=== PATIENT | male | born 1950 | race Caucasian/White ===

== ENCOUNTER 2016-05-31 18:11 | Inpatient (IN) | payer MEDICARE, MEDICAID ==
[~2016-05-31] VITALS: Ht 172.7 cm; Wt 125.7 kg
[~2016-05-31 18:11] MED LIST: AMBIEN DPS5 MG PO; ASCORBIC ACID500 MG PO; ASPIRIN EC81 MG PO; CALCIUM 600 +1 EAC3 PO; CARVEDILOL25 MG PO; COLACE-DPS100 MG PO; COUMADIN DPS2 MG PO; DEMADEX DPS100 MG PO; FEOSOL-DPS325 MG PO; HUMALOG 50100 UNITS/ SQ; LANTUS100 UNITS/ SQ; LEXAPRO DPS10 MG PO; MAALOX DPS30 ML PO; MYCOSTATIN PWD15 GM TP; MYLICON DPS80 MG PO; NITROSTAT0.4 MG SL; OMEGA-3 DPS1000 MG PO; OMNICEF DPS300 MG PO; POTASSIUM CHLO10 MEQ PO; PRAVACHOL20 MG PO; PROTONIX40 MG PO; ROCALTROL DPS0.5 MCG PO; SURFAK DPS240 MG PO; TYLENOL DPS325 MG PO
--- NOTE | 2016-06-01 06:57 | ER ---
ADMIT: 05/31/2016 RM/LOC: 309 MR#: [id number] 2620 [facility] [address] [place], [place] [address] MIRELLA JASSO [address] [address] Emergency Room Report SEX: M AGE: 66 : 1950 DATE: 05/31/2016 CHIEF COMPLAINT: Weakness. 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 Readily admits to frequent falls. Denies any head injury or loss of consciousness. ALLERGIES: NONE. MEDICATIONS: Please see nurse's MAR. PAST MEDICAL HISTORY: Illnesses: Chronic atrial fib, anticoagulated, CHF, coronary artery disease, type 2 diabetes, hypertension, stage 4 kidney disease, venous stasis disease with chronic edema, obstructive sleep apnea, noncompliant with CPAP. Operations: PCI stent, cholecystectomy, gastric bypass, ventral hernia repair, ERCP with bile duct repair, right wrist fracture with ORIF, dual chamber pacemaker with ICD. SOCIAL HISTORY: Nonsmoker, nondrinker. No illicit drugs. FAMILY HISTORY: Adopted. REVIEW OF SYSTEMS: A 12-point review of systems is negative for all other systems, illnesses, or operations except as outlined above. PHYSICAL EXAMINATION: VITAL SIGNS: Temp 96.1, pulse 75, respirations 21, BP 146/68, SaO2 of 100%. GENERAL: Nontoxic, non-diaphoretic without jaundice or icterus. Pale, cool, non-diaphoretic. Multiple contusions noted. HEENT: Normocephalic. No evidence of epistaxis, rhinorrhea, or otorrhea. NECK: Supple without lymphadenopathy or thyromegaly. CHEST: Clear. Breath sounds equal without rales, rhonchi, or wheeze. HEART: Regular rate and rhythm without murmur or gallop. 2+ pedal ankle edema, stable from baseline according to patient. ABDOMEN: Obese, nontender, nondistended without mass or megaly. Bowel sounds hypoactive. EXTREMITIES: No evidence of Homans sign, synovitis, or dermatitis. Chronic venous stasis disease noted in lower extremities. NEURO: EOMI. PERRLA. No evidence of drift, dysarthria, or ataxia. Gait not established due to weakness. MEDICAL DECISION MAKING: The patient is profoundly weak, two-person assist getting out of wheelchair. CT head shows subtle sliver subdurals, left frontal and parietal, no mass effect. Hemoglobin 9.2, WBC 11.0, CRP 2.3, ADMIT: 05/31/2016 RM/LOC: 309 MR#: [id number] [address] [address] MIRELLA JASSO [address] [place] [address] Emergency Room Report SEX: M AGE: 66 : 1950 potassium 4.2, creatinine 4.1, lactic 1.2, troponin 0.119, BNP 3426, INR 4.66, magnesium 2.6, procalcitonin 0.07. UA negative. Chest x-ray shows no acute findings. EKG shows ventricular pacemaker rhythm, unchanged from baseline. Discussed findings with Dr. Hanks and Dr. Jerad Lam. INR was reversed with vitamin K 2 mg p.o. and 2 units fresh frozen plasma. Orders were given for ICU. Due to patient's presentation, findings, and interventions, 30 minutes of critical care is warranted. DIAGNOSES: 1. Sliver subdural hematomas, left frontal and parietal. 2. Chronically anticoagulated for atrial fibrillation. 3. Exogenous obesity, status post bariatric surgery. 4. Coronary artery disease, status post PCI stent and dual chamber pacemaker with ICD. 5. End-stage renal disease, pending dialysis. RECOMMENDATION: Admit inpatient ICU for Dr. Ureña and Dr. Jerad Lam. ADMISSION/DISCHARGE CONDITION: Stable. CODE STATUS: The patient is a DNR. Rayshawn Villalpando MD/ nolvia JOB #: [id number] CC: Logan Ureña MD, Attending Physician Logan Ureña MD, Family Physician MD Jerad Diaz MD
[2016-06-04] MEDS ORDERED: COUMADIN6 MG PO (11:50)
[2016-06-04] MEDS ORDERED: VENOFER100 MG/5 M IV (11:51)
--- NOTE | 2016-06-05 16:04 | CO ---
ADMIT: 05/31/2016 RM/LOC: 309 [facility] MR#: [id number] 2620 [facility] [address] [place], [place] [address] TRACE JASSO [address] [address] Consultation SEX: M AGE: 66 : 1950 DATE OF CONSULTATION: 06/01/2016 ATTENDING PHYSICIAN: Logan Ureña CONSULTING PHYSICIAN: Jacob Vo MD REASON FOR CONSULTATION: Chronic kidney disease stage 4/5 and volume expansion. HISTORY OF PRESENT ILLNESS: The patient is a 66-year-old gentleman, who has a history of advanced chronic kidney disease. He presented to the hospital because he had been feeling poorly. He reports having a fall on Wednesday. This was a mechanical fall. He denies any loss of consciousness. He just had his legs give out. On evaluation here in the ER, he was noted to have a subdural hematoma, which has resolved as of our CAT scan today. Today, he feels well. He denies any loss of appetite, dysgeusia, or sleep disturbances. He denies any orthopnea or PND. He reports that his lower extremity edema is more or less stable. We had planned to get him down to see a vascular surgeon today for evaluation for evaluation of access placement for hemodialysis; but obviously, he is not going to be able to make that appointment today. He denies any urinary complaints. He notes ongoing lower extremity edema. He denies any abdominal complaints. He feels somewhat stronger but still weak. REVIEW OF SYSTEMS: Complete review of systems is negative in detail except as mentioned in the history of present illness above. PAST MEDICAL HISTORY: 1. Hypertension. 2. Diabetes mellitus. 3. Morbid obesity. 4. CHF. 5. Artery coronary artery disease, status post pacemaker and ICD placement. 6. Dyslipidemia. 7. CKD stage IV. 8. Secondary hyperparathyroidism. SOCIAL HISTORY: He lives independently. Denies any ongoing tobacco, alcohol, or recreational drug use. FAMILY HISTORY: No family history of chronic kidney disease or renal replacement therapy. MEDICATIONS: Reviewed in the chart. ALLERGIES: HE HAS NO KNOWN DRUG ALLERGIES. PHYSICAL EXAMINATION: VITAL SIGNS: Temperature 96.8 Fahrenheit, pulse 75, blood pressure 179/87, saturating 94% on room air. In's and out's over the last 24 hours have been 1.5 L in and 1200 mL out. ADMIT: 05/31/2016 RM/LOC: 309 [facility] MR#: [id number] [address] [id number] [place], [place] [address] TRACE JASSO [address] [place] [address] Consultation SEX: M AGE: 66 : 1950 GENERAL: He is comfortable in the recliner. Head is nontraumatic and normocephalic. Extraocular movements are intact. Pale conjunctivae. Moist mucosa. NECK: Supple without any JVD. CHEST: Clear to auscultation. CVS: Regular rate and rhythm. S1, S2 heard. No rubs, murmurs, or gallops. ABDOMEN: Soft and obese. EXTREMITIES: 1 to 2+ lower extremity edema. He has 1+ upper extremity edema as well. SKIN: Multiple bruises on his forearms. NEUROLOGIC: Alert and oriented x3. He is able to move all his extremities. PSYCHIATRIC: Affect and memory within normal limits. LABORATORY DATA: Reviewed. BMP with sodium of 143, potassium 3.7, CO2 of 27, creatinine 3.8, his hemoglobin was 8.1. ASSESSMENT AND PLAN: 1. Chronic kidney disease stage 4/5-he has no uremic symptoms at this time. There are no emergent indications for renal replacement therapy. As per our plan previously, I will try to get him seen by Vascular Surgery for access placement. I discussed the risks of a central venous catheter, chiefly infection risk and discussed with Trace that we would like to avoid it if he can. Of course, if there is any emergent indications for renal replacement therapy, we will put in a dialysis catheter and start renal replacement therapy. I also discussed uremic symptoms with him and he is aware of those. 2. Hypertension/volume expansion-I will stop his IV fluids. I will increase his torsemide from 60 mg a day to 100 mg a day. Check labs to monitor medication toxicity. 3. Anemia and chronic kidney disease-I will check iron stores and use iron/NANCY therapy as needed. 4. Renal osteodystrophy-he is on calcitriol 0.5 mcg a day. I will check a serum phosphorous level in the a.m. Continue calcitriol for the time being. Thank you for this consultation. Please do not hesitate to contact me with questions. Jacob Vo MD/ nolvia JOB #: [id number] CC: Logan Ureña, Attending Physician Logan Ureña, Family Physician
--- NOTE | 2016-06-08 07:11 | HP ---
ADMIT: 05/31/2016 RM/LOC: 309 [facility] MR#: [id number] [address] [facility] [address] [place], [place] [address] TRACE JASSO [address] [address] History and Physical SEX: M AGE: 66 : 1950 DATE OF SERVICE: HISTORY OF PRESENT ILLNESS: Trace is a 66-year-old, white male, with a history of chronic kidney disease near end stage, type 2 diabetes, venous insufficiency, hypertension, and CHF, who presents to the ER with progressively worsening fluid retention and lower extremity weakness. The patient states that he frequently falls as he is unable to ambulate very far. He says that his legs get weak, and he ends up falling or lowering himself to the ground. The last fall was the night before last. He says that he fell onto his bed and then slid down to the ground. He did not hit his head and denies loss of consciousness. He is on warfarin with a supratherapeutic INR currently and multiple bruises all over his body. He denies any current pain. No headache. No blurry vision. No numbness, tingling, and the only weakness is in his bilateral lower extremities with ambulation. He does get short of breath with ambulation, but is currently not short of breath at rest. EMERGENCY ROOM COURSE: INR was found to be supratherapeutic. Chest x-ray was benign. The CT of the head shows an acute subdural hematoma left frontal parietal region, so Neurosurgery was contacted for this. Vitamin K was given in the ER. The patient will be admitted to the ICU for CKD, fall, subdural hematoma, and supratherapeutic INR. PAST MEDICAL HISTORY: Type 2 diabetes, obesity, end-stage CKD with baseline creatinine of 3.6, hypertension, sleep apnea, venous insufficiency, atrial fibrillation, CHF, and cardiomyopathy. PAST SURGICAL HISTORY: Gastric bypass, pacemaker, cholecystectomy, hernia repair, ORIF, and forearm fracture. SOCIAL HISTORY: Single 66-year-old male, does not smoke or drink, currently disability. FAMILY HISTORY: Unknown as he is adopted. MEDICATIONS: Per the chart. REVIEW OF SYSTEMS: The patient has chronic swelling in feet and ankles though this has been worsening. Recently, he does have some arthritis-type pain in his knees, backs, and hips. He has increasing weakness, fatigue, and exercise tolerance due to his swelling, uses a motorized scooter to get around. He is unable to ambulate even short distances. Remainder of review of systems is negative. PHYSICAL EXAMINATION: VITAL SIGNS: Blood pressure 146/68, heart rate 75, respirations 21, temp 96.0, O2 saturation 100% on room air. GENERAL: Morbidly obese, but no acute distress. He is pleasant and conversational. HEENT: EOMI. Mucous membranes are moist. He does have a subconjunctival hemorrhage on the left orbit. ADMIT: 05/31/2016 RM/LOC: 309 [facility] MR#: [id number] [address] [address] TRACE JASSO [facility] [place] [address] History and Physical SEX: M AGE: 66 : 1950 NECK: Unable to appreciate any JVD. No lymphadenopathy palpated. CARDIOVASCULAR: Regular rhythm and rate. Appears to be a paced rhythm. No murmurs noted. PULMONARY: Clear to auscultation bilaterally. ABDOMEN: Morbidly obese. He does have ascites with a positive fluid wave. Decreased bowel sounds likely due to his extensive edema. EXTREMITIES: 3+ pitting edema bilateral lower extremities up to the abdomen. He does have a fluctuant almost like free fluid under his subcutaneous tissue of the dorsum of his feet. He does have a brawny thickened area on the back of his left calf with some excoriations though no apparent cellulitis or erysipelas at the current time. NEUROLOGIC: Cranial nerves II through XII grossly intact. Sensation is intact to light touch bilateral lower extremities. Decreased strength in his legs. EXTREMITIES: Bilateral arms showed numerous bruises in various stages of healing. LABORATORIES AND IMAGING: INR is 4.66. CMP is pertinent for a BUN of 66, creatinine 4.1, calcium of 7.7, and an albumin of 2.5. GFR is 14. Troponin is mildly elevated at 0.119. BNP is 34,000. CRP is 2.3. White count is 11, hemoglobin 9.2, and platelets are 255. Lactic acid is 1.2. Procalcitonin 0.07. Head CT shows acute subdural hematoma left frontoparietal lesion 2.8 mm maximum width, possible small left frontal hematoma measuring 2.4 mm, chronic small vessel ischemic changes, multiple calcifications. Chest x-ray shows no acute cardiopulmonary process. ASSESSMENT AND PLAN: 1. Subdural hematoma, on anticoagulation. Neurosurgery has been consulted, but the patient is hemostatically and neurologically intact; however, ADMIT: 05/31/2016 RM/LOC: 309 [facility] MR#: [id number] [address] [place] [address] TRACE JASSO [address] [place] [address] History and Physical SEX: M AGE: 66 : 1950 given his status, we will admit him to the ICU with routine vitals and neuro checks per their protocol. 2. Supratherapeutic INR. INR is greater than 4 with a head bleed. We will give vitamin K as well as 2 units of FFP. Appreciate Neurosurgery recommendations. 3. Chronic kidney disease, end stage. The patient currently has an appointment tomorrow to meet with what sounds like a vascular surgeon for dialysis access, but obviously will not be making that appointment, will consult Nephrology, will likely need diuresis versus temporary dialysis while we by time to get him a suitable permanent dialysis access. 4. Type 2 diabetes. Glucose checks q.6 hours. Low-dose Humalog sliding scale. Jarrett Black MD Resident / Loagn Ureña MD / modl JOB #: [id number] CC: Logan Ureña, Attending Physician Logan Ureña, Family Physician
--- NOTE | 2016-06-09 08:45 | CO ---
ADMIT: 05/31/2016 RM/LOC: 309 [facility] MR#: [id number] 2620 [facility] [address] [place], [place] [address] MIRELLA SUAREZ [address] [address] Consultation SEX: M AGE: 66 : 1950 DATE OF CONSULTATION: 05/31/2016 ATTENDING PHYSICIAN: Logan Ureña CONSULTING PHYSICIAN: Jerad Lam MD REASON FOR CONSULT: Intraparenchymal hemorrhage. HISTORY OF PRESENT ILLNESS: Mr. Suarez is a gentleman who has multiple bruises throughout his body. He falls frequently, although he states he has not fallen recently. He is on Coumadin for his heart. He has no complaints today as I am seeing him. PAST MEDICAL HISTORY: Coronary artery disease with stenting, diabetes type 2, ischemic cardiomyopathy, biventricular ICD, atrial fibrillation, chronic kidney disease stage IV, in need of dialysis, chronic edema, hypertension, obstructive sleep apnea, hyperlipidemia, arthritis, anemia, colon polyps, diverticulosis, psoriasis, esophagitis, secondary hyperparathyroidism, systolic heart failure, bariatric surgery with gastric bypass, herniorrhaphy, cholecystectomy, right wrist fracture with surgery. FAMILY HISTORY: Unknown due to adoption. SOCIAL HISTORY: He is retired. He lives at home. He is nonsmoker, nondrinker. ALLERGIES: NONE KNOWN. REVIEW OF SYSTEMS: A complete review of systems was obtained with pertinent positives dictated in the HPI. MEDICATIONS: 1. Escitalopram. 2. Calcium. 3. Calcitriol. 4. Aspirin 81 mg. 5. Ferrous sulfate. 6. Docusate sodium. 7. Zolpidem. 8. Pravastatin. 9. Omeprazole. 10.Carvedilol. 11.Vitamin C. 12.Warfarin. 13.Lovaza. 14.Simethicone. 15.Lantus. 16.Torsemide. 17.Mycostatin. ADMIT: 05/31/2016 RM/LOC: 309 [facility] MR#: [id number] 2620 [facility] [address] [place], [place] [address] MIRELLA SUAREZ [address] [facility] [address] [place] [address] Consultation SEX: M AGE: 66 : 1950 18.Maalox. 19.Surfak. 20.Tylenol. 21.Nitrostat. 22.Humalog. PHYSICAL EXAMINATION: VITAL SIGNS: 96.9 degrees, 75 beats, 23 respirations, 169/94, 94% on room air. A second unit of FFP is being prepared. 1 unit is already in. The acute reversal protocol was started by Dr. Ramirez in the Emergency Department. GENERAL: He is a very unhealthy-appearing 66-year-old gentleman who is morbidly obese. HEENT: Atraumatic head. No scleral icterus. Clear oropharynx. LUNGS: Normal respiratory excursion. ABDOMEN: Obese nontender abdomen. EXTREMITIES: Multiple differently aged bruises on his extremities with 2+ pitting edema and 1+ radial pulses. NEUROLOGICAL EXAMINATION: MENTAL STATUS: He is awake, alert, oriented x4. He has no dysphonia, dysarthria, or aphasia. His affect is appropriate. His thought content is normal. CRANIAL NERVES: Cranial nerves II through XII were individually tested and found to be intact without deficit. MOTOR: Exam reveals full motor activation in his bilateral upper and lower extremities with some chronic debilitation that is not lateralizing. SENSATION: Intact to light touch in upper and lower extremities. DEEP TENDON REFLEXES: 1/4 in the upper and lower extremities. CEREBELLAR: No cerebellar signs. GAIT: Not testable. History with multiple falls and due to his size and very high risk getting him up for evacuation without team and likely a lift. ADMIT: 05/31/2016 RM/LOC: 309 [facility] MR#: [id number] 2620 [facility] [address] [place], [place] [address] MIRELLA SUAREZ [address] [address] Consultation SEX: M AGE: 66 : 1950 ASSESSMENT AND PLAN: Mr. Suarez is a very pleasant gentleman who looks like he has some tentorial subdural hematoma on the right and some left frontal subdural hematoma without shift or edema, which is likely traumatic in nature. He is on anticoagulation with a high INR and that is actively being reversed. We will order a CT scan for the morning. I discussed with him the fact that if his blood is too thin with the subdural hematoma that he has, it is possible that he could even from this. He voices understanding. He is awake and alert at this point. We will keep a close eye on him. I do not think he will be a surgical candidate possibly at any point, although certainly not while his coagulation parameters are abnormal. We will transfuse 2 units of platelets for his aspirin. Jerad Lam MD/ nolvia JOB #: [id number] CC: Logan Ureña, Attending Physician Logan Ureña, Family Physician
--- NOTE | 2016-06-21 15:25 | DS ---
ADMIT: 05/31/2016 RM/LOC: 404 [facility] MR#: [id number] [address] [address] [place] [address] Discharge Summary SEX: M AGE: 66 : 1950 ADMISSION DATE: 05/31/2016 DISCHARGE DATE: 06/03/2016 DISCHARGE DIAGNOSES: 1. Acute subdural hematoma resolved. 2. Supratherapeutic INR (international normalized ratio) resolved. 3. CKD (chronic kidney disease) clinically stable. 4. Hypertension and edema improving. 5. Iron deficiency anemia on replacement. 6. Type 2 diabetes. CONSULTS: 1. Neurosurgery-Jerad Lam MD. 2. Nephrology-Jacob Vo MD. BRIEF HISTORY OF PRESENT ILLNESS: The patient is a 66-year-old, white male with a history of CKD, type 2 diabetes, hypertension, CHF, who presented to the ER with progressive worsening, fluid retention, and lower extremity weakness. The patient states that he falls frequently and is unable to ambulate very far. The distance he has been able to ambulate has been gradually decreasing. He noted falling two nights ago most recently but has become increasingly concerned with his swelling and fluid retention. ER COURSE: INR was found to be supratherapeutic. CT of the head shows an acute subdural hematoma. Neurosurgery was consulted. Vitamin K was given. The patient was admitted to the ICU for CKD, fall, supratherapeutic INR, and subdural hematoma. HOSPITAL COURSE: Neurosurgery saw the patient in the emergency room. Noted a tentorial subdural hematoma on the right and mild left frontal subdural hematoma without shift or edema. The patient was clinically stable but Neurosurgery agreed with frequent neuro checks and reversal of his supratherapeutic INR. The patient remained stable and did not decompensate overnight in the ICU. A repeat head CT was ordered for the morning. Diuresis was started for patient's volume expansion. Repeat CT of the head showed resolution of the subdural bleeds, and the patient was transferred out of the ICU to telemetry. It was discussed with the patient that he would likely need placement in a nursing care facility for rehab and patient agreed to this. Nephrology saw the patient, as they are currently seeing him for his CKD. He was supposed to be evaluated by Vascular Surgery for an access for dialysis but was unable to make that appointment due to his hospitalization. Nephrology adjusted some of his diuretic medications and replaced his iron for his iron deficiency anemia. He did not require emergent dialysis and a follow up with the vascular surgeon was arranged. The patient remained stable and labs normalized. [facility] agreed to accept transfer for patient for rehabilitation. The patient was discharged on 06/03 in good condition. DISCHARGE MEDICATIONS: ADMIT: 05/31/2016 RM/LOC: 404 [facility] MR#: [id number] [address] [address] [place] [address] Discharge Summary SEX: M AGE: 66 : 1950 1. Citalopram 10 mg daily. 2. Calcium/vitamin D b.i.d. 3. Calcitriol 0.5 mcg daily. 4. Aspirin was held. 5. Potassium supplement 10 mEq daily. 6. Ferrous sulfate 325 daily. 7. Docusate 100 mg daily. 8. Zolpidem 5 mg at bedtime. 9. Pravastatin 40 mg daily. 10.Omeprazole 40 mg daily. 11.Carvedilol 25 mg b.i.d. 12.Lovaza 1 g b.i.d. 13.Lantus 20 units daily. 14.Torsemide 100 mg daily. 15.Topical Mycostatin powder b.i.d. p.r.n. 16.The patient was instructed to resume Coumadin at 6 mg daily on June 08 and also to get a repeat Venofer injection 300 mg on June 09. FOLLOWUP APPOINTMENTS: The patient sees Dr. Sunny Traore, vascular surgeon, on June 08 at 9:15 a.m., and see Dr. Logan Ureña on June 09 at [address] Vo on 06/27 at 3:20 p.m. He is to follow up with primary with a CBC, BMP, and INR prior to his appointment. Jarrett Black MD Resident / Logan Ureña MD / margi JOB #: [id number] CC: Logan Ureña MD, Attending Physician Logan Ureña MD, Family Physician
== END 2016-06-03 11:29 | DRG 85 ==
LOC: ER 18:11 → 4PCU 20:10 → 3ICU 20:10 → 4PCU 06-01 16:23
PROVIDERS: ADMIT Family Medicine
PROC: 30233K1 Transfusion of Nonautologous Frozen Plasma into Peripheral Vein, Percutaneous Approach (ICD-10-PCS; principal; 2016-05-31)
DX: S06.5X0A Traumatic subdural hemorrhage without loss of consciousness, initial encounter (principal); N18.6 End stage renal disease; I13.2 Hypertensive heart and chronic kidney disease with heart failure and with stage 5 chronic kidney disease, or end stage renal disease; I42.9 Cardiomyopathy, unspecified; E11.22 Type 2 diabetes mellitus with diabetic chronic kidney disease; N25.81 Secondary hyperparathyroidism of renal origin; Z68.41 Body mass index [BMI] 40.0-44.9, adult; D63.1 Anemia in chronic kidney disease; I48.2 Chronic atrial fibrillation; I50.9 Heart failure, unspecified; I25.10 Atherosclerotic heart disease of native coronary artery without angina pectoris; R79.1 Abnormal coagulation profile; E66.01 Morbid (severe) obesity due to excess calories; I87.8 Other specified disorders of veins; G47.33 Obstructive sleep apnea (adult) (pediatric); Z91.19 Patient's noncompliance with other medical treatment and regimen; Z98.0 Intestinal bypass and anastomosis status; Z98.84 Bariatric surgery status; Z95.5 Presence of coronary angioplasty implant and graft; Z95.810 Presence of automatic (implantable) cardiac defibrillator; Z91.81 History of falling; Z79.82 Long term (current) use of aspirin; Z79.01 Long term (current) use of anticoagulants

== ENCOUNTER 2016-06-22 23:22 | Inpatient (IN) | payer MEDICARE, MEDICAID ==
[~2016-06-22] VITALS: Ht 172.7 cm; Wt 130.4 kg
--- NOTE | ~2016-06-22 | ECH ---
Transthoracic Echocardiography Report (TTE) Demographics Patient Name MIRELLA JASSO Date of Study 06/23/2016 Patient Number [id number] Visit Number [id number] Date of 1950 Room Number 403 Accession Number [id number] Gender Male Age 66 year(s) Referring Coco Moser Php Engineer Rekha Palomino [facility] Physician MD Adelita Payan MD Physician Interpreting Amelia Canada MD Patient Assistant Physician Supervising Ordering Physician Coco Moser MD/BA RAMIREZ Nurse Stress Mva Operator Conclusions Summary Technically adequate exam. The estimated left ventricular ejection fraction is 40%. Mild concentric left ventricular hypertrophy. Moderately dilated right ventricle with reduced function. The left atrium is severely dilated by LA volume index measurement. The right atrium is moderately dilated. Mild tricuspid regurgitation by color Doppler. There is severe pulmonary hypertension. The pulmonary pressure (RVSP) is 69 mmHg. Small posterior pericardial effusion. The ascending aorta appears mildly dilated. The maximum diameter measures 3.9 cm. Procedure Type of Study TTE procedure:Echo Complete SF. Procedure Date Date: 06/23/2016 Start: 12:07 PM Technical Quality: Adequate visualization Indications:Atrial fibrillation, cardiomyopathy, unspecified, Diabetes, Coronary artery disease and pacemaker/defibrillator. Additional Indications:BIVICD Appropriate Use Criteria: 9 Height: 68 inches Weight: 265 pounds BSA: 2.3 m Rhythm: Paced HR: 70 bpm BP: 132/82 mmHg M-Mode/2D Measurements LV Diastolic Dimension: 4.92 cm LV Systolic Dimension: 4.2 cm LV Septum Diastolic: 1.26 cm LV PW Diastolic: 1.32 cm AO Root Dimension: 3.85 cm Cardiac Output: 3.92 l/min LA Dimension: 4.36 cm Cardiac Index: 1.7 l/min*m RV Diastolic Dimension: 4.9 cm LA volume index: 49 ml/m Post Pericard Effusion: 0.7 cm LVOT: 2.09 cm LVOT VTI: 16.35 cm RV Base: 5 cm LV Stroke volume: 56.06 ml RV Mid: 2.9 cm LV Stroke volume index: 24.37 ml/m TAPSE: 1.3 cm TDI-S': 8 cm/s Doppler Measurements AV Peak Velocity: 0.9 m/s MV Peak E-Wave: 1.06 m/s AV Peak Gradient: 3.24 mmHg AV Mean Gradient: 1.78 mmHg MV P1/2t: 59.7 msec LVOT Peak Velocity: 0.72 m/s AV Area (Continuity):3.38 cm MV Area (PHT): 3.69 cm TR Velocity:4.06 m/s PV Peak Velocity: 0.73 m/s TR Gradient:65.93 mmHg PV Peak Gradient: 2.15 mmHg Estimated RAP:3 mmHg Estimated PASP: 68.93 mmHg Estimated RVSP: 69 mmHg A' Lateral Velocity: 0.06 m/s E' Septal Velocity: 0.07 m/s E' Lateral Velocity: 0.08 m/s RA Area: 27.1 cm Findings Left Ventricle The left ventricle is normal in size . Mild concentric left ventricular hypertrophy. Diastolic function indeterminate due to patient's arrhythmia. Right Ventricle Moderately dilated right ventricle with reduced function. Device lead noted in the right ventricle. Left Atrium The left atrium is severely dilated by LA volume index measurement. Right Atrium The right atrium is moderately dilated. Device lead seen in the right atrium. Mitral Valve Mild mitral annular calcification. Mild mitral regurgitation by color Doppler. Aortic Valve The aortic valve is mildly sclerotic. Tricuspid Valve Normal tricuspid valve structure and function. Mild tricuspid regurgitation by color Doppler. There is severe pulmonary hypertension. The pulmonary pressure (RVSP) is 69 mmHg. Pulmonic Valve Normal pulmonic valve structure and function. Trivial pulmonic valve regurgitation by color Doppler. Pericardial Effusion Small posterior pericardial effusion. Miscellaneous The ascending aorta appears mildly dilated. The maximum diameter measures 3.9 cm. Pleural Effusion No evidence of pleural effusion. Contractility Score LV regional wall motion:(0-Non visualized 1-Normal 2-Hypokinesis 3-Akinesis 4-Dyskinesis 5-Aneurysm) Signature
[~2016-06-22 23:22] MED LIST changes: +COUMADIN6 MG PO; +VENOFER100 MG/5 M IV
--- NOTE | 2016-06-25 06:57 | HP ---
ADMIT: 06/23/2016 RM/LOC: 532 [facility] MR#: [id number] [address] [place], [place] [address] TRACE JASSO [address] [address] History and Physical SEX: M AGE: 66 : 1950 DATE OF SERVICE: 06/23/2016 HISTORY OF PRESENT ILLNESS: This 66-year-old gentleman, who sustained a fall at his home fracturing his right hip. He was only on the ground for an hour or unless. He had a Lifeline and he called the EMS system. He has had issues with instability and falls and in fact, has only been home from the alf for less than a week and this is the second fall. He does not really complain of any other pain and even he is not that uncomfortable with the hip at this time. He reportedly did hit his head and of note, he recently had a subdural hematoma, which resolved spontaneously without surgery a little over one month ago. At that time, his INR was elevated in the supratherapeutic range. At any rate, he had been recovering at a local rehab facility and has only been home a week. In the emergency room, in addition to discovering the right intertrochanteric hip fracture he had a CT of the head and neck, which showed no acute changes. He is admitted for acute care under our service with Orthopedic consultation plus other consultations as discussed below. PAST MEDICAL HISTORY: Most recently hospitalized at [facility] in May with an acute subdural hematoma, which resolved spontaneously. Hospitalized in [address] Ureña with acute on chronic systolic heart failure with acute renal failure. Chronic medical conditions; states 4 to 5 chronic kidney disease, followed by Dr. Vo; type 2 diabetes; obesity; obstructive sleep apnea (not using his CPAP device); hypertension; atrial fibrillation; cardiomyopathy; and congestive heart failure; atrial fibrillation on chronic Coumadin therapy; some element of coronary artery disease, no history of stents or bypass; hyperlipidemia; some element of mitral valve disease. PAST SURGICAL HISTORY: He has had a gastric bypass, pacemaker, cholecystectomy, inguinal hernia, forearm fracture surgery, possibly other procedures. Cysto and fulguration of bleeding from the bladder neck. FAMILY HISTORY: The patient is adopted. SOCIAL HISTORY: He is single and lives alone. As noted, recently at rehab for subdural hematoma only home for less than a week. HABITS: He does not smoke or drink. ALLERGIES: NONE. MEDICATIONS: 1. Calcitriol 0.5 mcg once a day. 2. Calcium plus vitamin D supplement twice a day. 3. Coreg 25 mg twice a day. 4. Docusate 100 mg daily. 5. Ferrous sulfate 325 mg b.i.d. 6. Vitamin C 500 mg daily. 7. Potassium 10 mEq daily. ADMIT: 06/23/2016 RM/LOC: 532 [facility] MR#: [id number] [address] [place] [id number] TRACE JASSO [address] [place] [address] History and Physical SEX: M AGE: 66 : 1950 8. Lexapro 10 mg daily. 9. Multivitamin one daily. 10.NovoLog FlexPen sliding scale usual dose before meals is between 5 to 10 units. 11.Pravastatin 40 mg daily. 12.Omeprazole 20 mg b.i.d. 13.Demadex 20 mg three tabs daily. 14.Zolpidem 5 mg at bedtime p.r.n. 15.Lantus long-acting insulin 10 units nightly. 16.Cadet-3, 1 g b.i.d. 17.Warfarin 6 mg daily. 18.Lasix 80 mg b.i.d. REVIEW OF SYSTEMS: CONSTITUTIONAL: Denies any constitutional complaints such as chills or fever. ENT: No acute complaints. EYES: No acute complaints. RESPIRATORY: Denies cough or dyspnea. CV: Denies chest pain. GI: Denies nausea, vomiting, or stool changes. GENITOURINARY: Has been voiding normally. NEURO/PSYCH: Nothing acute. HEMATOLOGIC: History of bladder hemorrhage. History of subdural hematoma. No known history of DVT or PE. PHYSICAL EXAMINATION: GENERAL: Reveals an obese 66-year-old male, currently seems comfortable. He did receive some pain management in the emergency room. VITAL SIGNS: On admission 96.5, 73, 16, 109/60, 94% sat. ENT: Hearing is satisfactory. Oral mucous membranes appear moist. There is no nasal discharge. EYES: Pupils equal, round, reactive to light. Sclerae anicteric. HEAD AND NECK: Nontender. BACK: Nontender. LUNGS: Clear to auscultation anterior and posterior. HEART: Regular rhythm. I do not currently appreciate a murmur or gallop. ABDOMEN: Nontender to palpation. Obese male. No masses felt. GENITALIA: Unremarkable to cursory exam. RECTAL: Not performed. EXTREMITIES: Upper extremities; no gross abnormalities at this time, some minor bruising on the arms. Lower extremities; the right leg is shortened and externally rotated, tender over the proximal femur. Pain with internal- external rotation of the right hip. Left hip is not tender. Minimal edema in the lower legs. Pulses are felt in the feet bilaterally. PSYCH: He is alert and calm. NEURO: No focal changes. LABORATORY DATA: His labs are reviewed. His INR is in the therapeutic range at 1.74, curiously we give some vitamin K in the emergency room and it is now ADMIT: 06/23/2016 RM/LOC: 532 [facility] MR#: [id number] [address] [facility] [address] [place], [place] [address] TRACE JASSO [address] [address] History and Physical SEX: M AGE: 66 : 1950 high at 1.93. Hemoglobin 9.8 in the emergency room last night, and 9.2 this morning. White count normal as are platelets. He has chronic renal disease and his creatinine is 4.5, BUN 56, GFR 13 calculated. Electrolytes are unremarkable except for sodium minimally elevated 146, and CO2 elevated at 34. IMPRESSION: 1. Right intertrochanteric hip fracture. 2. Recovered from subdural hematoma from last month, no residual. 3. Chronic cardiomyopathy. 4. Type 2 diabetes. 5. Advanced chronic kidney disease. 6. Also has some significant elevation of his liver function tests compared to similar readings last month, cause is unclear. He is not symptomatic from it and isolated AST elevation. PLAN: I requested input from Urology because the catheter can be passed. Cardiology because of his chronic cardiomyopathy and Nephrology. I have been notified by nursing staff that Dr. Carr is comfortable operating on Trace even though his INR still elevated. I would certainly defer to his judgment on that him being the surgeon. I reviewed his home medications and will give a small quantity of them but most of them will be on hold for the time being. I will follow up with each of the consultants for his general medical needs. Public Health Professor will be involved for discharge planning. Ganesh Ashton MD/ nolvia JOB #: [id number] CC: Logan Ureña, Attending Physician Logan Ureña, Family Physician
--- NOTE | 2016-06-27 23:08 | ER ---
ADMIT: 06/22/2016 RM/LOC: ER [facility] MR#: [id number] [address] [facility] [address] [place], [place] [address] MIRELLA JASSO [address] [address] Emergency Room Report SEX: M AGE: 66 : 1950 DATE: 06/22/2016 CHIEF COMPLAINT: Fall. HISTORY OF PRESENT ILLNESS: The patient is a 66-year-old male with chronic AFib, anticoagulation, end-stage renal disease pending dialysis, chronic anemia, receiving Epogen, frequent falls, and hospitalization for recent sliver subdural hematomas, May 31 through . Just released from [facility] several days ago. Stumbled at home, hit his head, called 911 for lift assist as he has done multiple times in the past. When he was unable to stand on his own, paramedics transported. The patient does admit to right hip pain. Denies any neck pain, loss of consciousness, or focal deficit. PAST MEDICAL HISTORY: ALLERGIES: NONE. MEDICATIONS: Please see nurse's MAR. ILLNESSES: Recent sliver subdurals, atrial fib, coronary artery disease, CHF, anticoagulated, type 2 diabetes, stage 4 chronic kidney disease, venous stasis disease with chronic anemia, edema, obstructive sleep apnea, noncompliant with CPAP. OPERATIONS: PCI stent, cholecystectomy, gastric bypass, ventral herniorrhaphy repair, ERCP with biliary stent, right wrist fracture ORIF, dual chamber pacemaker with ICD. SOCIAL HISTORY: Nonsmoker and nondrinker. No illicit drugs. FAMILY HISTORY: Adopted. REVIEW OF SYSTEMS: A 12-point review of systems is negative for all other systems, illnesses, or operations except as outlined above. PHYSICAL EXAMINATION: VITAL SIGNS: Temp 97.4, pulse 75, respirations 18, BP 90/51, SaO2 of 90% on room air. GENERAL: Pale, nontoxic, non-diaphoretic without jaundice or icterus. HEENT: Normocephalic. No evidence of epistaxis, rhinorrhea, or otorrhea. NECK: Supple without lymphadenopathy or thyromegaly. CHEST: Clear. Breath sounds equal. HEART: Regular rate and rhythm with trace ankle edema. ABDOMEN: Soft, obese, nontender, and nondistended without mass or megaly. Bowel sounds hypoactive. EXTREMITIES: Pelvis nontender to compression or rock. Decreased range of motion of right hip secondary to pain. External rotation and shortening noted. Venous stasis dermatitis changes noted. NEURO: EOMI, PERRLA. No evidence of drift, dysarthria, or ataxia. GAIT: Not assessed. ADMIT: 06/22/2016 RM/LOC: [facility] MR#: [id number] [address] [address] MIRELLA JASSO [facility] [place] [address] Emergency Room Report SEX: M AGE: 66 : 1950 MENTAL STATUS: Alert, oriented, and cooperative without delusions, hallucinations, or abnormal thought content. MEDICAL DECISION MAKING: The patient is a partial trauma based on mechanism anticoagulation. CT head negative. CT neck negative. Chest x-ray, no acute findings. Pelvis negative except for three-part right intertrochanteric hip fracture. Right hip confirms displaced three-part intertrochanteric right hip fracture. EKG shows ventricular paced rhythm unchanged from previous. Glucose 109, INR 1.74. CMP pending. Alcohol pending. Hemoglobin 9.8, WBC 9.0, platelets 240. EMERGENCY DEPARTMENT COURSE: The patient was given a liter of bolus, Zofran, morphine for pain. Discussed case with Dr. Ashton, who agreed and gave orders to nursing staff. Notified Dr. Carr, who agreed and requested routine hip orders. Dr. Vo will be consulted in morning. DIAGNOSES: 1. Three-part right intertrochanteric hip fracture. 2. Frequent falls. 3. Chronically anticoagulated. 4. Chronic atrial fibrillation. 5. End-stage renal disease, pending dialysis. RECOMMENDATION: Admit inpatient telemetry for Dr. Jose G Ureña and Dr. Carr. ADMISSION/DISCHARGE CONDITION: Stable. CODE STATUS: The patient is a full code. Rayshawn Villalpando MD/ nolvia JOB #: [id number] CC: Rayshawn Villalpando MD, Attending Physician Logan Ureña MD, Family Physician MD Jacob Diaz MD Laurence F Lesiak, MD
--- NOTE | 2016-06-29 11:53 | OR ---
ADMIT: 06/23/2016 RM/LOC: 532 [facility] MR#: [id number] [address] [facility] [address] [place], [place] [address] ROMERO MIRELLA Payan [address] [address] Operative/Delivery Room Report SEX: M AGE: 66 : 1950 SURGERY DATE: 06/23/2016 SURGEON: Karen Carr MD PREOPERATIVE DIAGNOSIS: Comminuted right peritrochanteric hip fracture. POSTOPERATIVE DIAGNOSIS: Comminuted right peritrochanteric hip fracture. PROCEDURE: Right hip trochanteric femoral nailing. ANESTHESIA: General. QUALITY INSPECTOR: Jimmy Espinoza PA-C. ESTIMATED BLOOD LOSS: 200 mL. COMPLICATIONS: None. SPECIMEN: None. IMPLANT: Synthes long trochanteric femoral nail 400 mm x 12 mm x 130 degrees with a 110 mm helical blade and a 72 mm distal locking screw. DESCRIPTION OF PROCEDURE: This patient was brought to the operating room. After a satisfactory level of anesthesia was achieved, the patient was placed on the fracture table. After placing the patient in traction, all bony prominences had been well padded. His left lower extremity was placed in a stirrup and padded, and then the right lower extremity was placed in traction, and a close reduction performed. We got a very good reduction on AP and lateral C-arm images. The extremity was prepped and draped in the usual sterile fashion. Because of its large posterior medial fragment, I elected to go with long nail. Through a proximal incision made above the tip of the greater trochanter, dissection was carried through the subcutaneous tissue. Hemostasis was achieved using electrocautery. The tensor fascia was opened and a guidewire placed through the trochanter. The trochanteric reamer was used and then the guidewire was switched to a long bulb-tipped guidewire, and this was placed distally, confirmed with AP and lateral C-arm images. I then started reaming and started getting chatter on the reamer with endosteal reaming at about 12 mm and I reamed up to a 13.5 mm, and after measuring my device, I found that a 12 mm x 400 mm x 130 degree long trochanteric femoral nail was used. This was impacted into position, position confirmed with AP and lateral C-arm images. I then used the alignment guide laterally placed ADMIT: 06/23/2016 RM/LOC: 532 [facility] MR#: [id number] [address] [address] MIRELLA JASSO [facility] [place] [address] Operative/Delivery Room Report SEX: M AGE: 66 : 1950 through a 2 cm incision up to the base of the trochanter, and a guidewire was placed into the femoral head and neck using C-arm image intensifier. This was measured, the cortex reamed, and a step-drill was used up into the femoral head. I seated a 110 mm spiral blade, locked it proximally. Then, after positioning the leg distally with abduction to facilitate getting a true lateral, I then used a 2 cm incision distally and placed a single locking screw in the dynamic slot of the distal raulito. Position was confirmed on AP and lateral C-arm images. All wounds were then irrigated. The deep fascia was closed with an interrupted #1 Vicryl, the subcutaneous tissue with multiple layers of 2-0 Vicryl, and the skin with jaspal. Sterile dressings were applied to each wound and he was then transferred to the recovery room in stable condition. Karen Carr MD/ nolvia JOB #: [id number] CC: Logan Ureña, Attending Physician Logan Ureña, Family Physician
--- NOTE | 2016-07-01 10:47 | CO ---
ADMIT: 06/23/2016 RM/LOC: 403 [facility] MR#: [id number] 2620 [facility] [address] [place], [place] [address] MIRELLA JASSO [address] [address] Consultation SEX: M AGE: 66 : 1950 DATE OF CONSULTATION: 06/23/2016 ATTENDING PHYSICIAN: Logan Ureña CONSULTING PHYSICIAN: Jacob Vo MD REASON FOR CONSULTATION: Chronic kidney disease stage V. HISTORY OF PRESENT ILLNESS: The patient is a 66-year-old gentleman, who is well known to me. He has a history of advanced chronic kidney disease. He was admitted to the hospital last month with a fall. He presents to the hospital again after a fall. He reports that he felt weak in his legs and he went down to the floor. He also hit his head. He called paramedics via his lifeline and was eventually brought over to the hospital. He complained of right hip pain, and upon evaluation, was noted to have intertrochanteric fracture of his right hip for which he may end up needing surgical treatment. At the time of this encounter, he is comfortable. He denies any nausea, vomiting, dysgeusia, or loss of appetite. He states he has been making urine appropriately. Denies any worsening lower extremity edema. Denies any skin rash. Denies any unsk-ggn-gvpupte medications. Denies any orthopnea or PND. Denies any chest pain. Other than weakness in his legs, he has no other complaints. REVIEW OF SYSTEMS: A complete review of systems is negative in detail except as mentioned in history of present illness above. PAST MEDICAL HISTORY: 1. Hypertension. 2. Type 2 diabetes mellitus. 3. Morbid obesity. 4. Chronic congestive heart failure. 5. Coronary artery disease, status post pacemaker and ICD placement. 6. Dyslipidemia. 7. CKD, stage V. 8. Anemia in chronic kidney disease. 9. Secondary hyperparathyroidism. SOCIAL HISTORY: He was living independently. No ongoing tobacco, alcohol, or recreational drug use. FAMILY HISTORY: No family history of chronic kidney disease or renal replacement therapy. MEDICATIONS: Reviewed and addressed in the chart. ALLERGIES: NO KNOWN DRUG ALLERGIES. PHYSICAL EXAMINATION: VITAL SIGNS: Temperature 98.3 Fahrenheit, pulse 75, ADMIT: 06/23/2016 RM/LOC: 403 [facility] MR#: [id number] [address] [place], [place] [address] MIRELLA JASSO [address] [place] [address] Consultation SEX: M AGE: 66 : 1950 blood pressure 132/82. GENERAL: He is comfortable in bed. HEENT: Head is nontraumatic and normocephalic. Extraocular movements are intact. Pale conjunctivae. Dry mucosa. CHEST: Clear to auscultation. CVS: Regular rhythm. S1 and S2 heard. No rubs, murmurs, or gallops. ABDOMEN: Soft and obese. EXTREMITIES: 1+ bilateral lower extremity edema. SKIN: No rash or nodules. He has some bruises on his right arm and chronic skin changes over his lower extremities. NEUROLOGIC: Alert, awake, and oriented x3. He has no asterixis. MUSCULOSKELETAL: Extremities are within normal limits. PSYCHIATRIC: Affect, memory within normal limits. LABORATORY DATA: Reviewed. His BMP with sodium 146, potassium 4.6, CO2 is 34, creatinine is 4.5, BUN 56. Hemoglobin 9.2. Calcium 7.9. ASSESSMENT AND PLAN: 1. Chronic kidney disease, stage V. 2. Hypertension. 3. Anemia in chronic kidney disease. He has no uremic symptoms at this time and no indication for renal replacement therapy currently. I had hoped for him to get an access as an outpatient, but he has not even seen a vascular surgeon yet. He is okay for hip surgery at this time. If he develops any indications for renal replacement therapy, he will likely need a dialysis catheter and dialysis through that. I would like to hold off on renal replacement therapy at this time in order to allow him to have some time to recover from his hip surgery. However, if he develops any indications for renal placement therapy, we will proceed with dialysis. He is agreeable to the above plan of care. I will also continue to monitor his kidney function, electrolytes during this hospitalization along with his hemoglobin. Thank you for this consultation. Please do not hesitate to contact with any questions. Jacob Vo MD/ nolvia JOB #: [id number] CC: Logan Ureña, Attending Physician Logan Ureña, Family Physician
--- NOTE | 2016-07-05 09:01 | CO ---
ADMIT: 06/23/2016 RM/LOC: 403 [facility] MR#: [id number] [address] [facility] [address] [place], [place] [address] MIRELLA SUAREZ [address] [address] Consultation SEX: M AGE: 66 : 1950 DATE OF CONSULTATION: 06/23/2016 ATTENDING PHYSICIAN: Logan Ureña CONSULTING PHYSICIAN: Ehsan Trotter MD CHIEF COMPLAINT: Urinary retention. HISTORY OF PRESENT ILLNESS: This 66-year-old, obese male fell and fractured his hip, and on admission has had difficulty voiding. The nursing staff attempted for a Pacheco catheter placement without success prompting Urologic consultation. The patient was last seen in consultation by us on 08/22 for gross hematuria. He has had no recurrence of his hematuria at that time. He has been voiding he feels with a good stream without hesitancy or straining to void. There has been no feeling of incomplete emptying. He has been seen previously by us for benign prostatic hyperplasia as well as an elevated PSA. Prostate ultrasound with biopsy was negative at that time. There has been no recurrent urinary tract infections and he denies dysuria. PAST MEDICAL HISTORY: MEDICATIONS: 1. Ambien 5 mg. 2. Aspirin 81 mg daily. 3. Colace 100 mg b.i.d. 4. Coreg 25 mg b.i.d. 5. Coumadin which is on hold. 6. Ferrous sulphate 325 mg daily. 7. Lexapro 10 mg daily. 8. Micro-K 10 mEq daily. 9. Pravachol 40 mg daily. 10.Protonix 40 mg daily. 11.Sliding scale insulin. 12.Levemir insulin 160 units subcu daily. 13.Lasix IV every hour. ALLERGIES: NONE. OPERATIONS: 1. Inguinal herniorrhaphy. 2. Cholecystectomy. 3. Pacemaker placement. 4. Fractured forearm. REVIEW OF SYSTEMS: He does have a history of morbid obesity, severe fluid retention, type 2 diabetes mellitus, chronic renal insufficiency, hypertension, sleep apnea, venous insufficiency, atrial fibrillation, chronic anticoagulation therapy, and congestive heart failure associated with cardiomyopathy. ADMIT: 06/23/2016 RM/LOC: 403 [facility] MR#: [id number] [address] [facility] [address] [place], [place] [address] MIRELLA SUAREZ [address] [place] [address] Consultation SEX: M AGE: 66 : 1950 FAMILY HISTORY: Negative for urologic problems. SOCIAL HISTORY: He does not smoke. PHYSICAL EXAMINATION: GENERAL: This is a healthy 66-year-old obese male, in no acute distress. HEENT: Unremarkable. NECK: Supple without adenopathy. ABDOMEN: Obese without tenderness, guarding, or rigidity throughout. GENITOURINARY: Penis is normal as was urethral meatus. Both testes were descended and felt to be normal. RECTAL: Examination was deferred. ASSESSMENT: 1. Urinary retention following hip fracture with a history of prostatism. PLAN: 1. A #[place] Pacheco catheter was passed per urethra into the bladder without difficulty and placed to straight drainage. There was clear urine noted in the drainage system. 2. I would continue Pacheco catheter drainage until the patient is stable at which time the Pacheco can be removed with a voiding trial. Thank you for allowing us to assist in the care of Mr. Suarez. We will be available should further evaluation be necessary. Ehsan Trotter MD/ nolvia JOB #: [id number] CC: Logan Ureña, Attending Physician Logan Ureña, Family Physician Ganesh Ashton MD
--- NOTE | 2016-07-06 11:22 | CO ---
ADMIT: 06/23/2016 RM/LOC: 532 [facility] MR#: [id number] [address] [place], [place] [address] CIHQUITAELIZABETH MIRELLA Payan [address] [address] Consultation Report SEX: M AGE: 66 : 1950 Corrected: 06/24/2016 1247 djs ATTENDING PHYSICIAN: Logan Ureña CONSULTING PHYSICIAN: Karen Carr MD CHIEF COMPLAINT: Right hip pain. HISTORY OF PRESENT ILLNESS: This is a 66-year-old male complaining of right hip pain. Patient fell last night. He says that his legs are generally weak and give out every once in a while. They gave out last night and he fell on his right side pretty hard sustaining a forehead abrasion as well as significant right hip pain that warranted going to the emergency room. He was evaluated in the emergency room by Dr. Villalpando. He now says that his hip pain is still pretty significant and hurts to move or touch at all. PAST MEDICAL HISTORY: Not pertinent to the patient's hip fracture. ALLERGIES: NONE. MEDICATIONS: Please see nurse's MAR. SOCIAL HISTORY: Noted in the H and P done by Dr. Villalpando in the emergency room. SURGICAL HISTORY: Noted in the H and P done by Dr. Villalpando in the emergency room. FAMILY HISTORY: Noted in the H and P done by Dr. Villalpando in the emergency room. REVIEW OF SYSTEMS: Noted in the H and P done by Dr. Villalpando in the emergency room. PHYSICAL EXAMINATION: GENERAL: The patient is a pleasant man appearing comfortable in the hospital bed. EXTREMITIES: The right hip shows no evidence of bruising, swelling, erythema, or warmness. He does have limited range of motion due to pain on any kind of movement of the right lower extremity. He is very tender to palpation and has 3+ pitting edema in his right lower leg down to his right foot. Sensation is intact, and 1+ pedal pulses are recognized on his exam. IMAGING: X-ray show a minimally displaced right intertrochanteric femur ADMIT: 06/23/2016 RM/LOC: 532 [facility] MR#: [id number] [address] [address] MIRELLA JASSO [address] [place] [address] Consultation Report SEX: M AGE: 66 : 1950 fracture with a comminuted lesser trochanter. ASSESSMENT: Right intertrochanteric femur fracture. PLAN: At this time, Dr. Carr will plan on performing surgery on the patient today around 03:00 p.m. on 06/23/2016. He will be proceeding with a right trochanteric femoral nail which will stabilize the intertrochanteric femur fracture. The risks, benefits, and alternatives of the procedure have been discussed with the patient and he has elected to proceed. The consent form has been signed as well as the patient's right side. ODILIA Shrestha / Karen Carr MD / nolvia JOB #: [id number] CC: Logan Ureña, Attending Physician Logan Ureña, Family Physician Corrected: 06/24/2016 1247 bertrand
--- NOTE | 2016-07-06 14:23 | CO ---
ADMIT: 06/23/2016 RM/LOC: 532 [facility] MR#: [id number] [id number] [place], [place] [address] TRACE JASSO [address] [address] Consultation SEX: M AGE: 66 : 1950 ATTENDING PHYSICIAN: Logan Ureña CONSULTING PHYSICIAN: Mat Sepulveda MD REASON FOR CONSULT: Preop clearance. Stephanie Romo RN, scribing for Mat Sepulveda MD HISTORY OF PRESENT ILLNESS: Trace is a very pleasant 66-year-old gentleman, well known to me whom I have been asked to see in Cardiology consultation by Dr. Ureña for preoperative clearance. He follows regularly with me in clinic and he was last seen on April 09 of this year. He has history of coronary artery disease status post PCI in 2004 with stent to the distal right coronary artery. He also has history of ischemic cardiomyopathy with an ejection fraction around 35% status post BiV ICD, history of systolic heart failure, hypertension, hyperlipidemia, diabetes, and chronic kidney disease. Trace presented to [facility] yesterday evening, he was admitted late last night or early this morning after suffering a fall where he was found to have a right hip fracture requiring total hip arthroplasty. Unfortunately he was just discharged on June 02 after suffering a fall with a subdural hematoma. He was admitted to custodial for rehabilitation. It sounds like he was home that first day that he was back home, is when he had his hip fracture and fall. His Coumadin has been held because of his subdural hematoma with a recent supratherapeutic INR. His creatinine on admission is elevated at 4.5, looks like he had been around 3.7 to 3.8 previously. He also has elevated liver enzymes and anemia being followed for that as well. He denies any chest pain, shortness of breath, palpitations, presyncope, or peripheral edema. His biggest issue currently is his right hip pain which he describes as severe. PAST MEDICAL HISTORY: Coronary artery disease status post PCI in 2004; persistent atrial fibrillation; systolic heart failure, status post BiV ICD; chronic kidney disease; ischemic cardiomyopathy; hypertension; hyperlipidemia; diabetes; recent subdural hematoma; history of right wrist fracture; sleep apnea, on CPAP; chronic anemia; osteoarthritis; history of colon polyps and diverticulitis; esophagitis; obesity; psoriasis; history of right forearm fracture status post open reduction, internal fixation of right forearm; history of hernia repair; history of bariatric surgery and cholecystectomy. ALLERGIES: NO KNOWN MEDICATION ALLERGIES. MEDICATIONS: Currently Trace is only on Senokot-S 1 tablet p.o. b.i.d. Home medications have not been continued. FAMILY HISTORY: Noncontributory. SOCIAL HISTORY: Trace is single. He lives at home alone. He denies any special diet, caffeine, alcohol, or drug use. ADMIT: 06/23/2016 RM/LOC: 532 [facility] MR#: [id number] [facility] [address] [address] CHIQUITATRACE JOHNSON [facility] [place] [address] Consultation SEX: M AGE: 66 : 1950 REVIEW OF SYSTEMS: GENERAL: Reports increased fatigue over the last few days but no recent fever, chills, or sweats. Weight has been stable. EYES: Denies double vision, blurred vision, cataracts, or glaucoma. ENT: Denies hearing loss or problems with nose, mouth or throat. RESPIRATORY: History of obstructive sleep apnea, on CPAP. Denies cough, sputum production, asthma, emphysema or bronchitis. Denies wakefulness at night or fatigue upon awakening. GASTROINTESTINAL: Liver enzymes were elevated currently. History of cholecystectomy. Denies any GI bleeding, trouble swallowing, heartburn, or acid reflux currently. GENITOURINARY: Elevated creatinine with acute on chronic kidney disease, creatinine around 4.5, elevated from about baseline of 3.7. Denies dysuria, hematuria, nocturia, urinary tract infection, or kidney stones. MUSCULOSKELETAL: Current admission with right hip fracture requiring surgery. Denies gout. ENDOCRINE: History of diabetes. Denies thyroid issues. HEMATOLOGY: Has acute on chronic anemia. Denies any current bleeding issues that he is aware of. NEUROLOGIC: Recent admissions for subdural hematoma after fall with supratherapeutic INR. Denies any stroke or seizure activity. PSYCHIATRIC: History of depression. Denies any anxiety. PHYSICAL EXAMINATION: VITAL SIGNS: Blood pressure 132/82, heart rate 75, respirations 14, temperature 98.3, and oxygenation 99% on O2. GENERAL: Pale, alert, but quiet. SKIN: [place], warm and dry. EYES: Sclerae clear. No xanthelasmas. ENT: Oral mucosa is pink and moist. No jugular venous distention or carotid bruits. CHEST: Respirations are even and unlabored. Lungs are clear to auscultation. HEART: Regular rate and rhythm. Normal S1, S2. No murmurs, rubs or gallops. ABDOMEN: Soft and nontender. MUSCULOSKELETAL: Gait is normal. EXTREMITIES: Mild edema on the right. Bilateral discoloration. No clubbing, cyanosis. PSYCHIATRIC: Alert and oriented. Mood and affect are appropriate. DIAGNOSTIC DATA: Sodium 146, potassium 4.6, BUN 56, creatinine 4.5, glucose 116. INR 1.88. White blood cell count 9.2, hemoglobin 9.2, hematocrit 31.1, platelets 230. AST 404 and ALT 87. ASSESSMENT AND PLAN: 1. Right hip fracture. 2. Coronary artery disease. 3. Diabetes. 4. Obesity. 5. Chronic systolic congestive heart failure. 6. Status post BiV ICD. ADMIT: 06/23/2016 RM/LOC: 532 [facility] MR#: [id number] [address] [address] TRACE JASSO [address] [address] Consultation SEX: M AGE: 66 : 1950 7. Persistent atrial fibrillation. 8. Recent subdural, off anticoagulation. 9. Acute on chronic kidney disease. Trace is a pleasant 66-year-old diabetic with previous coronary artery disease with an ejection fraction of 35%, history of CHF, BiV ICD, and chronic kidney disease. He had a recent fall with subdural hematoma, now off anticoagulation. Shortly after arriving home, he fell again and fractured his right hip. He denies any angina or syncope at this time. His heart failure is stable. His creatinine today is up to 4.5 and he is anemic. From my standpoint, Trace is stable. He has had no angina and his heart failure is stable as well. I will check echocardiogram today to make sure there are no wall motion abnormalities, valvular abnormalities, or change in ejection fraction. He is at least moderate risk given his multiple system and volume and chronic illnesses and recent subdural hematoma. I will continue to follow him closely. Thank you for the consultation. "I have read and agree with the documentation that has been completed regarding this visit. By signing this record, I attest that the documentation was completed in my physical presence and is an accurate record of the encounter." Stephanie Romo RN / Mat Sepulveda MD / nolvia JOB #: [id number] CC: Logan Ureña, Attending Physician Logan Ureña, Family Physician
--- NOTE | 2016-08-13 08:09 | DS ---
ADMIT: 06/23/2016 RM/LOC: 532 [facility] MR#: [id number] 26[address] [facility] [address] [place], [place] [address] MIRELLA JASSO [address] [address] General Discharge Summary SEX: M AGE: 66 : 1950 ADMISSION DATE: 06/23/2016 DISCHARGE DATE: 06/24/2016 INDICATION FOR HOSPITALIZATION: Mirella is a 66-year-old white male, who fell at home and fractured his right hip and was admitted to [facility] after calling EMS on June 23, 2016. He had a complicated past medical history. He had had a recent subdural with an elevated INR. He was admitted for right hip fracture care in medical management of his other complicated problems. Please see his admission H and P for the details. HOSPITAL COURSE: On admission, Mirella was admitted to [facility] with routine fracture care orders. Accu-Chek monitoring, sliding scale insulin, and Lasix dosing was ordered. He was a do not resuscitate for discussion. Appropriate pain medications, IV fluids, and electrolytes were ordered. His home CPAP was continued. IV Lasix was ordered. A Pacheco catheter was placed. [facility] was involved and they felt he was stable from a cardiac standpoint. Nephrology was involved in the case and the patient was felt to be okay for operative intervention and underwent a right hip fracture transcutaneous femoral nail on June 23 and on June 24, his vital signs were stable. Some IV adjustments were made. Accu-Chek monitoring was reviewed. Coumadin dosing was resumed. Lasix doses were adjusted and a Dilaudid [employer] pump was continued. Postop Cardiology and Nephrology were involved and felt like he was doing well from their standpoint. The patient ultimately abruptly from a presumed cardiac origin on the evening of June 24. LABORATORY AND X-RAY DATA: Show a white count 11.9, hemoglobin 9.2, and platelet count of 250,000 on June 24. On June 22, white count 9.0, hemoglobin 9.8, and platelet count 240,000. On June 24, INR 1.41. On June 23, INR 1.93. On June 19, UA is unremarkable. On June 24, sodium of 142, potassium 4.6, BUN 54, creatinine 4.4, and glucose 146. On June 22, sodium 146, potassium 4.4, BUN of 59, creatinine 4.5 with glucose 100. Hemoglobin A1c on June 24 5.8. Blood alcohol on June 22 negative. Urine culture was negative. CT of the brain is negative for acute abnormalities. CT of the C-spine was negative. Chest x-ray on admission shows some pulmonary edema. He has a right intertrochanteric hip fracture on June 22. Echo on June 23 shows ejection fraction of 40% with LVH, moderate right ventricular dilation with severe dilated left atrial enlargement, severe pulmonary hypertension. FINAL DIAGNOSES: Include likely secondary to acute cardiac event. OTHER PROBLEMS: Include: 1. Severe pulmonary hypertension. 2. Severe left atrial enlargement. 3. Renal failure. 4. Right intertrochanteric hip fracture. 5. Recent subdural hematoma. 6. Chronic cardiomyopathy. ADMIT: 06/23/2016 RM/LOC: 532 [facility] MR#: [id number] [address] [place] [address] MIRELLA JASSO [address] [place] [address] General Discharge Summary SEX: M AGE: 66 : 1950 7. Diabetes mellitus type 2. 8. Chronic kidney disease, currently stage IV and V. 9. Obesity. 10.Chronic atrial fibrillation. 11.Chronic congestive heart failure. 12.Coronary artery disease, status post bypass. 13.Medically managed hyperlipidemia. 14.Benign essential hypertension. 15.Valvular heart disease. PROCEDURE: Include right transcutaneous femoral nail. DISCHARGE MEDICATIONS: There were no medications at discharge as he was pronounced . Logan Ureña MD/ nolvia JOB #: [id number] CC: Logan Ureña MD, Attending Physician Logan Ureña MD, Family Physician
== END 2016-06-24 17:15 | disposition expired | DRG 480 ==
LOC: ER 23:22 → 4PCU 06-23 00:20 → 5MS 06-23 00:20
PROVIDERS: ADMIT Family Medicine
PROC: 0QS636Z Reposition Right Upper Femur with Intramedullary Internal Fixation Device, Percutaneous Approach (ICD-10-PCS; principal; 2016-06-23)
DX: S72.141A Displaced intertrochanteric fracture of right femur, initial encounter for closed fracture (principal); N18.6 End stage renal disease; N17.9 Acute kidney failure, unspecified; I13.2 Hypertensive heart and chronic kidney disease with heart failure and with stage 5 chronic kidney disease, or end stage renal disease; N25.81 Secondary hyperparathyroidism of renal origin; I50.22 Chronic systolic (congestive) heart failure; Z68.41 Body mass index [BMI] 40.0-44.9, adult; I46.2 Cardiac arrest due to underlying cardiac condition; I48.2 Chronic atrial fibrillation; E11.22 Type 2 diabetes mellitus with diabetic chronic kidney disease; S00.81XA Abrasion of other part of head, initial encounter; D64.9 Anemia, unspecified; G47.33 Obstructive sleep apnea (adult) (pediatric); R79.89 Other specified abnormal findings of blood chemistry; W19.XXXA Unspecified fall, initial encounter; R33.9 Retention of urine, unspecified; D63.1 Anemia in chronic kidney disease; I25.10 Atherosclerotic heart disease of native coronary artery without angina pectoris; I25.5 Ischemic cardiomyopathy; E78.5 Hyperlipidemia, unspecified; E66.9 Obesity, unspecified; Z98.0 Intestinal bypass and anastomosis status; Z98.84 Bariatric surgery status; Z79.4 Long term (current) use of insulin; Z95.810 Presence of automatic (implantable) cardiac defibrillator; Z91.81 History of falling; Z95.5 Presence of coronary angioplasty implant and graft; Z79.01 Long term (current) use of anticoagulants; Z91.19 Patient's noncompliance with other medical treatment and regimen; Z66 Do not resuscitate